=== PATIENT | male | born 1995 | race Caucasian/White ===

== ENCOUNTER → 2023-05-18 | Outpatient (CLI) | payer OTHER ==
[2023-05-18 15:49] LABS: BASO # 0.1 10^3/uL (0.0-0.2); BASO % 1.6 % (0.0-1.0); EOS # 0.4 10^3/uL (0.0-0.5); EOS % 5.2 % (0.0-3.0); HEMATOCRIT 42.8 % (42.0-52.0); HEMOGLOBIN 14.4 g/dl (13.5-17.5); LYMPH # 2.3 10^3/uL (1.5-5.0); LYMPH % 34.5 % (24.0-44.0); MEAN CORPUSCULAR HEMOGLOBIN 28.5 pg (27.0-33.0); MEAN CORPUSCULAR HGB CONC 33.6 g/dl (32.0-36.5); MEAN CORPUSCULAR VOLUME 84.8 fl (80.0-96.0); MONO # 0.6 10^3/uL (0.0-0.8); MONO % 9.4 % (2.0-8.0); NEUTROPHILS # 3.3 10^3/uL (1.5-8.5); PLATELET COUNT, AUTOMATED 248 10^3/uL (150-450); RED BLOOD COUNT 5.05 10^6/uL (4.30-6.10); WHITE BLOOD COUNT 6.7 10^3/uL (4.0-10.0)
== END ==
LOC: M LAB 15:21
PROVIDERS: ATTEND Registered Nurse Psychiatric/Mental Health
DX: Z51.81 Encounter for therapeutic drug level monitoring (principal); Z79.899 Other long term (current) drug therapy

== ENCOUNTER 2024-09-28 15:56 | Emergency (ER) | payer OTHER ==
[~2024-09-28] VITALS: Ht 177.8 cm; Wt 73.6 kg
[2024-09-28 15:59] VITALS: BP 145/65; TEMP 97.8; O2SAT 100
[2024-09-28] MEDS ORDERED: ALPR1TAB3 (16:09)
[2024-09-28] MEDS ORDERED: FLUO-365 (16:09)
[2024-09-28] MEDS ORDERED: LACO200T (16:09)
[2024-09-28] MEDS ORDERED: BUPR1SUB5 (16:09)
[2024-09-28] MEDS ORDERED: FLUO-290 PO (16:29)
[2024-09-28] MEDS ORDERED: ALPR2TAB3 PO (16:29)
== END 2024-09-28 16:35 | disposition home or self-care (01) ==
LOC: M ED 15:56
DX: F31.9 Bipolar disorder, unspecified (principal); Z76.0 Encounter for issue of repeat prescription; Z79.899 Other long term (current) drug therapy